=== PATIENT | male | born 1980 | race Caucasian/White ===

== ENCOUNTER 2022-10-08 15:04 | Outpatient (CLI) | payer SELFPAY | END 2022-10-08 15:05 | disposition critical access hospital (66) | LOC: EMS 15:04 | DX: R07.9 Chest pain, unspecified (principal); R06.02 Shortness of breath; R05.9 Cough, unspecified; R09.3 Abnormal sputum | CPT/HCPCS: A0425; A0427 ==

== ENCOUNTER 2022-10-08 15:42 | Emergency (ER) | payer MEDICAID, OTHER ==
[2022-10-08] MEDS ORDERED: KETOROLAC 30 MG/ML VIAL IVP STA (16:11)
--- NOTE | 2022-10-08 16:11 | ED Physician Documentation ---
History of Present Illness - Stated complaint Stated Complaint: SOA/CP - Chief complaint Chief Complaint: Cardiac - Additonal information Additional information: 42-year-old male presents to the emergency department for evaluation of shortne ss of air and pleuritic chest pain. Reports that he woke up with it in the a.m. yesterday about 6. Since then its been a persistent constant sharp pain worse with deep breathing. No recent falls or trauma. No cough. No fevers. Pain does not radiate. No nausea or vomiting. He did take Tylenol without relief of symptoms. He does not know his family history as he was adopted. Denies tobacco use. Occasionally smokes cannabis. Occasional alcohol. Takes no prescribed medications. EMS did give the patient for milligrams of nitroglycerin and he did report some chest pain relief. Patient is not currently being treated for hypertension or diabetes and denies any such history. Review of Systems Constitutional: denies: Fever, Chills Cardiac: reports: Chest pain / pressure. denies: Palpitations, Pedal edema, Calf pain Respiratory: reports: Dyspnea. denies: Cough, Hemoptysis, Wheezing GI: reports: Reviewed and negative : reports: Reviewed and negative Skin: reports: Reviewed and negative Musculoskeletal: reports: Reviewed and negative Neurologic: reports: Reviewed and negative Psychiatric: reports: Reviewed and negative Endocrine: reports: Reviewed and negative PD PAST MEDICAL HISTORY - Present Medications Home Medications: Ambulatory Orders Medication Instructions Recorded Confirmed No Known Home Medications 10/08/22 10/08/22 - Allergies Allergies/Adverse Reactions: Allergies Allergy/AdvReac Type Severity Reaction Status Date / Time No Known Drug Allergies Allergy Verified 10/08/22 15:52 PD ED PE NORMAL - General General: Alert and oriented X 3, Well developed/nourished. No: No acute distress (Appears uncomfortable and short of air.) - HEENT HEENT: Atraumatic, Moist mucous membranes - Neck Neck: Supple, no meningeal sign, No adenopathy - Cardiac Cardiac: RRR, No murmur - Respiratory Respiratory: No respiratory distress, Clear bilaterally - Abdomen Abdomen: Normal bowel sounds, Soft - Back Back: No CVA TTP, No spinal TTP - Derm Derm: Normal color Results - Vitals Vitals: Vital Signs - 24 hr 10/08/22 10/08/22 15:49 16:00 Temperature 36.5 C Heart Rate 80 80 Respiratory 16 13 Rate Blood Pressure 133/81 H 131/79 H O2 Saturation 100 99 Oxygen O2 Source Room air - EKG (time done) 1558 Rate: Rate (enter#) (71) Rhythm: NSR [place]: Normal Intervals: Normal MD. No: Prolonged QT QRS: Normal Ischemia: ST elevation c/w repol Compare to prior EKG: Old EKG unavailable Computer interpretation: Agree with computer - Labs Labs: Laboratory Tests 10/08/22 10/08/22 10/08/22 16:06 16:06 16:06 WBC 5.6 RBC 4.49 L Hgb 13.5 L Hct 38.9 L MCV 86.6 MCH 30.1 MCHC 34.7 RDW 12.2 Plt Count 176 MPV 9.1 Neut # (Auto) 3.7 Lymph # (Auto) 1.4 L [place] # (Auto) 0.5 Eos # (Auto) 0.1 Baso # (Auto) 0.0 Absolute Nucleated RBC 0.00 Nucleated RBC % 0.0 Sodium 138 Potassium 3.9 Chloride 107 Carbon Dioxide 26 Anion Gap 5.0 L BUN 20 Creatinine 0.9 Estimated GFR (MDRD) 93 Glucose 80 Calcium 8.7 Total Bilirubin 0.7 AST 13 ALT 15 Alkaline Phosphatase 38 L Troponin I High Sens < 2.3 L B-Natriuretic Peptide Total Protein 6.9 Albumin 4.1 Globulin 2.8 Albumin/Globulin Ratio 1.5 Lipase 31 10/08/22 16:06 WBC RBC Hgb Hct MCV MCH MCHC RDW Plt Count MPV Neut # (Auto) Lymph # (Auto) [place]isher # (Auto) Eos # (Auto) Baso # (Auto) Absolute Nucleated RBC Nucleated RBC % Sodium Potassium Chloride Carbon Dioxide Anion Gap BUN Creatinine Estimated GFR (MDRD) Glucose Calcium Total Bilirubin AST ALT Alkaline Phosphatase Troponin I High Sens B-Natriuretic Peptide 18 Total Protein Albumin Globulin Albumin/Globulin Ratio Lipase - Rads (name of study) CT angio chest Radiology: Final report received (No acute cardiopulmonary abnormality. No pulmonary embolism.) PD Medical Decision Making - ED course Complexity details: reviewed results, re-evaluated patient, considered differential, d/w patient ED course: 42-year-old male presents emergency department for evaluation of severe onset pleuritic chest pain that woke him from sleep last night. He said no cough or fevers. However he is very uncomfortable with breathing. He did take some Tylenol and ibuprofen yesterday without relief of symptoms. He is adopted and does not know his family history. He has no orthopnea. No recent travel surgery or unilateral leg swelling. No history of hormone supplementation. Here in the emergency department on presentation he was initially 2 L nasal cannula but when the oxygen was turned off his saturations remained in the high to mid 90s. Cardiopulmonary auscultation was unremarkable. EKG was nonischemic per my inerpretations. We did obtain a CBC electrolytes as well as a troponin which were all essentially negative per my interpretation. 1 troponin should be sufficient given the duration of symptoms for greater than [address] pulmonary angiogram was completed was also negative for findings of pulmonary embolism per readiology interpretation Here in the emergency department patient was administered Toradol 30 mg IV once which markedly improved the dyspnea as well as reported pleuritic chest pain. At this time the patient is stable for discharge home. I do suspect component of pleurisy. He is advised close follow-up with PCP. Recommended alternating doses of Tylenol and ibuprofen for discomfort. Usual emergent return precautions were discussed for worsening symptoms. Departure - Departure Disposition: Home, Self Care Clinical Impression: Pleuritic chest pain Condition: Stable Record reviewed to determine appropriate education?: Yes Instructions: ED Chest Pain Pleurisy Comments: Solo you came to the emergency department because you are having a lot of chest pain when breathing and felt very labored and short of air. Your labs today in the emergency department including a CBC electrolytes and troponin were all negative. Your EKG is normal for age and does not show signs of a heart attack. Your chest x-ray was normal. We did do an angiogram of your chest to rule out a blood clot and that is also negative. I suspect the cause of your pain to be pleurisy which is an inflammation of the lining of the lungs. We did give you a dose of Toradol here in the emergency department. This seems to have relieved your symptoms. At home I recommend taking ibuprofen 600 mg with food 2-3 times a day for the next few days. In general I would expect your symptoms to be getting consistently better over the next week. If they do not, you develop fevers, or severely short of air or have any fainting episodes please return to the ER for second evaluation.
--- NOTE | 2022-10-08 16:19 | XRAY Report ---
PROCEDURE: Chest 1 View X-Ray INDICATIONS: Chest pain TECHNIQUE: One view of the chest was acquired. COMPARISON: None. FINDINGS: Surgical changes and devices: None. Lungs and pleura: No pleural effusions or pneumothorax. Lungs are clear. Mediastinum: Mediastinal contours appear normal. Heart size is normal. Bones and chest wall: No suspicious bony lesions. Overlying soft tissues appear unremarkable. IMPRESSION: No acute cardiopulmonary abnormality Reviewed by: Dru Culp on 10/08/2022 3:18 PM [facility] Approved by: Dru Culp on 10/08/2022 3:18 PM [facility] Station ID: [id number]
[2022-10-08 16:21] LABS: BASOPHILS % (AUTO) 0.4 %; EOSINOPHILS # (AUTO) 0.1 10^3/uL (0.0-0.7); EOSINOPHILS % (AUTO) 1.4 %; HCT - HEMATOCRIT 38.9 % (42.0-52.0); HGB - HEMOGLOBIN 13.5 g/dL (14.0-18.0); LYMPHOCYTES # (AUTO) 1.4 10^3/uL (1.5-3.5); LYMPHOCYTES % (AUTO) 24.7 %; MEAN CORPUSCULAR HEMOGLOBIN 30.1 pg (27.0-31.0); MEAN CORPUSCULAR HGB CONC 34.7 g/dL (32.0-36.0); MEAN CORPUSCULAR VOLUME 86.6 fL (80.0-94.0); MEAN PLATELET VOLUME 9.1 fL (7.4-11.4); MONOCYTES # (AUTO) 0.5 10^3/uL (0.0-1.0); MONOCYTES % (AUTO) 8.5 %; NEUTROPHILS # (AUTO) 3.7 10^3/uL (1.5-6.6); NEUTROPHILS % (AUTO) 64.8 %; PLT - PLATELET COUNT 176 10^3/uL (130-450); RED BLOOD COUNT 4.49 10^6/uL (4.70-6.10); RED CELL DISTRIBUTION WIDTH 12.2 % (12.0-15.0); WHITE BLOOD COUNT 5.6 x10^3/uL (4.8-10.8)
[2022-10-08 16:36] LABS: ALBUMIN 4.1 g/dL (3.2-5.5); ALBUMIN/GLOBULIN RATIO 1.5 (1.0-2.2); BILIRUBIN,TOTAL 0.7 mg/dL (0.2-1.0); CALCIUM 8.7 mg/dL (8.5-10.3); CREATININE 0.9 mg/dL (0.6-1.2); POTASSIUM 3.9 mmol/L (3.5-5.0); TOTAL PROTEIN 6.9 g/dL (6.7-8.2)
[2022-10-08] MEDS ORDERED: iohexoL-300 100 ML VIAL ONE (16:43)
[2022-10-08] MEDS ORDERED: iohexoL-300 100 ML VIAL IVP ONE (17:22)
--- NOTE | 2022-10-08 17:37 | CT Report ---
PROCEDURE: ANGIO CHEST W/WO INDICATIONS: left upper pleuritic chest pain CONTRAST: 80ml omni 300 TECHNIQUE: After the administration of intravenous contrast, 2 mm axial images were acquired from the pulmonary apices to the posterior costophrenic angles during the arterial phase. In addition, 1 mm lung kernel and 5 mm soft tissue kernel reconstructions were performed. 3-dimensional coronal oblique maximum int ensity projection (MIP) reformats, 8 mm axial MIP, and 5 mm coronal and sagittal MPR reformats were t hen performed through the thorax. For radiation dose reduction, the following was used: automated exp osure control, adjustment of mA and/or kV according to patient size. No pulmonary embolism. COMPARISON: None FINDINGS: Image quality: Excellent. Pulmonary arteries: Pulmonary arteries are normal in size, and demonstrate no intraluminal filling d efects to suggest central pulmonary embolism. Lungs and pleura: Lungs are clear. No pleural effusions or pneumothorax. Central and peripheral ai rways are patent. Mediastinum: Heart size is normal, without pericardial effusion. No mediastinal or hilar adenopathy . Thoracic aorta is normal in caliber and enhancement. Esophagus is normal in caliber, without hiat al hernia. Bones and chest wall: No suspicious bony lesions. Ribs and thoracic spine appear intact throughout. No axillary or supraclavicular adenopathy. The thyroid is normal in size and there are no incident al findings. Abdomen: Visualized upper abdominal solid organs appear normal in the early arterial phase of enhanc ement. IMPRESSION: 1. No acute cardiopulmonary abnormality. 2. No pulmonary embolism. Reviewed by: Dru Culp on 10/08/2022 4:35 PM [facility] Approved by: Dru Culp on 10/08/2022 4:35 PM [facility] Station ID: [id number]
[2022-10-08 18:04] VITALS: BP 100/84
== END 2022-10-08 18:10 | disposition home or self-care (01) ==
LOC: EDUNIT# → ED 15:42
DX: R09.1 Pleurisy (principal)
CPT/HCPCS: 36415; 71045; 71275; 80053; 83690; 83880; 84484; 85025; 93005; 96374; 99284; Q9967